=== PATIENT | female | born 1995 | race Two or more races ===

== ENCOUNTER 2018-08-05 17:57 | Emergency (ER) | payer OTHER, SELFPAY ==
[~2018-08-05] VITALS: Ht 167.6 cm; Wt 99.8 kg
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
[2018-08-05 19:05] VITALS: BP 150/89
[2018-08-05] MEDS ORDERED: HYDR-3164 PO (19:28)
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
== END 2018-08-05 20:01 | disposition home or self-care (01) ==
LOC: ER 17:57
DX: S82.491A Other fracture of shaft of right fibula, initial encounter for closed fracture (principal); M25.571 Pain in right ankle and joints of right foot; Y04.8XXA Assault by other bodily force, initial encounter; Y93.89 Activity, other specified; Y92.89 Other specified places as the place of occurrence of the external cause; Y99.8 Other external cause status
CPT/HCPCS: 29505; 73590; 73610; 99284

== ENCOUNTER 2019-02-18 22:42 | Emergency (ER) | payer OTHER ==
[~2019-02-18] VITALS: Ht 167.6 cm; Wt 117.9 kg
[~2019-02-18 22:42] MED LIST: HYDR-3164 PO
[2019-02-18 23:27] VITALS: BP 162/83
--- NOTE | 2019-02-18 23:48 | PHYS DOC ---
Past Medical History Past Medical History: No Pertinent History (SAMEER WALLS APRN) Past Surgical History: No Surgical History (SAMEER WALLS APRN) Alcohol Use: None Drug Use: None (SAMEER WALLS APRN) Attending Signature I have participated in the care of this patient and I have reviewed and agree with all pertinent clinical information above including history, exam, and recommendations. (BRANDI ZARCO MD) Adult General Chief Complaint Chief Complaint: UPPER EXTREMITY PAIN HPI HPI Patient is a 23 year old female who presents to the ED today complaining of a bruise on the right forearm that she noted 2 days ago and is concerned it could be a blood clot because her friend told her. Patient denies any injuries that she knows of. 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 (SAMEER WALLS APRN) Review of Systems Review of Systems Constitutional: Denies fever or chills [] Musculoskeletal: Denies back pain or joint pain [] Integument: Reports bruise to the right forearm Neurologic: Denies headache, focal weakness or sensory changes [] All other systems were reviewed and found to be within normal limits, except as documented in this note. (SAMEER WALLS APRN) Allergies Allergies Allergies Coded Allergies Type Severity Reaction Last Updated Verified No Known Drug Allergies 08/17/14 No (BRANDI ZARCO MD) Physical Exam Physical Exam Constitutional: Well developed, well nourished, no acute distress, non-toxic appearance. [] Skin: Warm, dry, right lateral distal forearm with a small bruise, adequate radial, medial, ulnar sensation to the right upper extremity. +2 right radial pulse. Cap refill less than 2 seconds the right fingers. Back: No tenderness, no CVA tenderness. [] Extremities: No tenderness, no cyanosis, no clubbing, ROM intact, no edema. [] Neurologic: Alert and oriented X 3, normal motor function, normal sensory function, no focal deficits noted. [] Psychologic: Affect normal, judgement normal, mood normal. [] (SAMEER WALLS APRN) Current Patient Data Vital Signs Vital Signs Date Time Temp Pulse Resp B/P (MAP) Pulse Ox O2 Delivery O2 Flow Rate FiO2 02/18/19 23:27 98.0 78 18 162/83 (109) 98 Room Air 98.0 (BRANDI ZARCO MD) EKG EKG [] (SAMEER WALLS APRN) Radiology/Procedures Radiology/Procedures [] (SAMEER WALLS APRN) Course & Med Decision Making Course & Med Decision Making Pertinent Labs and Imaging studies reviewed. (See chart for details) This is a 23-year-old female patient presenting to the ED today worried she has a bruise on the right forearm and thinks it could be a blood clot. Patient was reassured. PERC score 0. Discharged to home. (SAMEER WALLS APRN) Dragon Disclaimer Dragon Disclaimer This electronic medical record was generated, in whole or in part, using a voice recognition dictation system. (SAMEER WALLS APRN) PERC Rule for PE PERC Rule for PE Response (Comments) Value Age > 50: No 0 HR > 100: No 0 Sa02 on room air <95%: No 0 Unilateral leg swelling: No 0 Hemoptysis: No 0 Recent surgery or trauma: No 0 Prior PE or DVT: No 0 Hormone use: No 0 Total 0 Departure Departure Impression: Primary Impression: Arm bruise Disposition: HOME, SELF-CARE Condition: STABLE ((and then this taking it is) Referrals: NO PCP (PCP) follow up next week with your doctor as needed Patient Instructions: Contusion Additional Instructions: You have a bruise to the right forearm, you can ice and elevate the affected area. You can take Tylenol/Motrin for pain. Follow-up with your doctor in 1-2 weeks Problem Qualifiers Primary Impression: Arm bruise Encounter type: initial encounter Laterality: right Qualified Codes: S40.021A - Contusion of right upper arm, initial encounter SAMEER WALLS APRN Feb 18, 2019 23:48 BRANDI ZARCO MD Feb 19, 2019 04:30
== END 2019-02-19 00:08 | disposition home or self-care (01) ==
LOC: ER 22:42
DX: S40.021A Contusion of right upper arm, initial encounter (principal); X58.XXXA Exposure to other specified factors, initial encounter; Y93.89 Activity, other specified; Y92.89 Other specified places as the place of occurrence of the external cause; Y99.8 Other external cause status
CPT/HCPCS: 99281

== ENCOUNTER 2019-08-24 19:32 | Emergency (ER) | payer SELFPAY ==
[~2019-08-24] VITALS: Ht 170.2 cm; Wt 98.0 kg
[2019-08-24 19:56] VITALS: BP 158/86
--- NOTE | 2019-08-24 20:20 | RAD ---
RIGHT ANKLE AP, LATERAL, OBLIQUE Clinical Indication: Reason: ankle injury / Comparison: None. Findings: There is acute traumatic oblique transverse nondisplaced fracture of the lateral malleolus. There is moderate overlying soft tissue swelling. Mineralization is normal. Joint spaces are maintained. The ankle mortise is intact. There is no ankle joint effusion. IMPRESSION: Acute traumatic nondisplaced fracture of the lateral malleolus. Electronically signed by: Tray Erwin MD (08/24/2019 8:17 PM) [id number]
--- NOTE | 2019-08-24 20:24 | PHYS DOC ---
Past Medical History Past Medical History: No Pertinent History Past Surgical History: No Surgical History Smoking Status: Current Every Day Smoker Alcohol Use: Occasionally Drug Use: None General Adult EDM: Chief Complaint: LOWER EXT PAIN HPI: HPI: Patient is a 24-year-old otherwise healthy female presents with a right ankle injury. She states she missed a step about an hour ago and everted her right ankle. She heard a pop. She states the pain is intense and made worse with any attempt to ambulate. She denies any other injuries at this time. [] Review of Systems: Review of Systems: Constitutional: Denies fever or chills. [] Eyes: Denies change in visual acuity. [] HENT: Denies nasal congestion or sore throat. [] Respiratory: Denies cough or shortness of breath. [] Cardiovascular: Denies chest pain or edema. [] GI: Denies abdominal pain, nausea, vomiting, bloody stools or diarrhea. [] : Denies dysuria. [] Musculoskeletal: Per HPI [] Integument: Denies rash. [] Neurologic: Denies headache, focal weakness or sensory changes. [] Endocrine: Denies polyuria or polydipsia. [] Lymphatic: Denies swollen glands. [] Psychiatric: Denies depression or anxiety. [] Heart Score: Risk Factors: Risk Factors: DM, Current or recent (<one month) smoker, HTN, HLP, family history of CAD, obesity. Risk Scores: Score 0 - 3: 2.5% MACE over next 6 weeks - Discharge Home Score 4 - 6: 20.3% MACE over next 6 weeks - Admit for Clinical Observation Score 7 - 10: 72.7% MACE over next 6 weeks - Early Invasive Strategies Allergies: Allergies: Allergies Coded Allergies Type Severity Reaction Last Updated Verified No Known Drug Allergies 08/17/14 No Physical Exam: PE: Constitutional: Well developed, well nourished, moderate distress, non-toxic appearance. [] HENT: Normocephalic, atraumatic, bilateral external ears normal, oropharynx moist, no oral exudates, nose normal. [] Eyes: PERRLA, EOMI, conjunctiva normal, no discharge. [] Neck: Normal range of motion, no tenderness, supple, no stridor. [] Cardiovascular:Heart rate regular rhythm, no murmur [] Lungs & Thorax: Bilateral breath sounds clear to auscultation [] Abdomen: Bowel sounds normal, soft, no tenderness, no masses, no pulsatile masses. [] Skin: Warm, dry, no erythema, no rash. [] Back: No tenderness, no CVA tenderness. [] Extremities: Right ankle has swelling and pain to palp over the lateral malleolus no obvious deformity just swelling [] Neurologic: Alert and oriented X 3, normal motor function, normal sensory function, no focal deficits noted. [] Psychologic: Affect normal, judgement normal, mood normal. [] Current Patient Data: Vital Signs: Vital Signs Date Time Temp Pulse Resp B/P (MAP) Pulse Ox O2 Delivery O2 Flow Rate FiO2 08/24/19 19:56 95.0 98 16 158/86 (110) 98 Room Air 95.0 EKG: EKG: [] Radiology/Procedures: Radiology/Procedures: [REASON: ankle injury PROCEDURE: ANKLE RIGHT 3V RIGHT ANKLE AP, LATERAL, OBLIQUE Clinical Indication: Reason: ankle injury / Comparison: None. Findings: There is acute traumatic oblique transverse nondisplaced fracture of the lateral malleolus. There is moderate overlying soft tissue swelling. Mineralization is normal. Joint spaces are maintained. The ankle mortise is intact. There is no ankle joint effusion. IMPRESSION: Acute traumatic nondisplaced fracture of the lateral malleolus.] Course & Med Decision Making: Course & Med Decision Making Pertinent Labs and Imaging studies reviewed. (See chart for details) [ED course: Evaluation reveals a 24-year-old with a right ankle fracture. Please see below for description of splint placement. Procedure: Posterior OCL splint placement right lower leg Splint was placed by myself and the tech I examined after the splint was placed and the patient remained neurovascularly intact patient was also fitted for crutches.] Dragon Disclaimer: Dragon Disclaimer: This electronic medical record was generated, in whole or in part, using a voice recognition dictation system. Departure Departure Impression: Primary Impression: Closed fracture of right distal fibula Qualified Codes: S82.831A - Other fracture of upper and lower end of right fibula, initial encounter for closed fracture Disposition: HOME, SELF-CARE Condition: STABLE Referrals: NO PCP (PCP) SHASHA HARRY MD Call Dr. Harry this week to schedule follow-up appointment. Patient Instructions: Cast or Splint Care, Crutch Use, Fibular Fracture, Ankle, Adult, Undisplaced, Treated with Immobilization Scripts Hydrocodone/Apap 5-325 (NORCO 5-325 TABLET) 1 Each Tablet 1 TAB PO PRN Q6HRS PRN for PAIN, #12 TAB 0 Refills Prov: NILSA HERRMANN DO 08/24/19 NILSA HERRMANN DO August 24, 2019 20:24
[2019-08-24] MEDS ORDERED: HYDR-3164 PO (20:28)
[2019-08-24] MEDS ORDERED: ONDANSETRON ODT 4 MG TAB.RAPDIS. PO ONE (20:30)
[2019-08-24] MEDS ORDERED: oxyCODONE/APAP 5/325 1 TAB TABLET PO ONE (20:30)
== END 2019-08-24 21:12 | disposition home or self-care (01) ==
LOC: ER 19:32
DX: S82.831A Other fracture of upper and lower end of right fibula, initial encounter for closed fracture (principal); F17.200 Nicotine dependence, unspecified, uncomplicated; X50.9XXA Other and unspecified overexertion or strenuous movements or postures, initial encounter; Y93.89 Activity, other specified; Y92.89 Other specified places as the place of occurrence of the external cause; Y99.8 Other external cause status
CPT/HCPCS: 29515; 73610; 99284; Q0162

== ENCOUNTER 2021-04-12 11:54 | Emergency (ER) | payer BC ==
[~2021-04-12] VITALS: Ht 167.6 cm; Wt 107.7 kg
--- NOTE | 2021-04-12 12:49 | PHYS DOC ---
Past Medical History Past Medical History: No Pertinent History Past Surgical History: No Surgical History Smoking Status: Current Every Day Smoker Alcohol Use: None Drug Use: None General Adult EDM: Chief Complaint: VAGINAL BLEEDING HPI: HPI: Patient is a 25 year old female at approximately 5w4d by LMP who presents with vaginal bleeding, and lower abdominal cramping. Bleeding started last night as spotting and has progressed to more steady bleeding. Cramping started this morning. Patient recently tested positive for home test. Her last menstrual period was 03/04. She has had 1 previous full-term vaginal induction delivery that was complicated by preec lampsia and gestational diabetes. She has had 1 medically induced at 8-9 weeks gestational age approximately 2 years ago. Denies abdominal pain, dysuria, or urinary urgency, urinary frequency. Review of Systems: Review of Systems: Constitutional: Denies fever or chills. [] Eyes: Denies change in visual acuity. [] HENT: Denies nasal congestion or sore throat. [] Respiratory: Denies cough or shortness of breath. [] Cardiovascular: Denies chest pain or edema. [] GI: + Lower pelvic cramping : + Vaginal bleeding denies dysuria. [] Musculoskeletal: Denies back pain or joint pain. [] Integument: Denies rash. [] Neurologic: Denies headache, focal weakness or sensory changes. [] Psychiatric: Denies depression or anxiety. [] Heart Score: C/O Chest Pain: No Allergies: Allergies: Allergies Coded Allergies Type Severity Reaction Last Updated Verified No Known Drug Allergies 08/17/14 No Physical Exam: PE: Constitutional: Well developed, well nourished, no acute distress, non-toxic appearance. [] Neck: Normal range of motion, no tenderness, supple, no stridor. [] Cardiovascular:Heart rate regular rhythm, no murmur [] Lungs & Thorax: Bilateral breath sounds clear to auscultation [] Abdomen: Soft, mild suprapubic tenderness to palpation. Pelvic: Normal external genitalia examination. Small amount of blood coming from an open cervical os. No products seen. Skin: Warm, dry, no erythema, no rash. [] Back: No tenderness, no CVA tenderness. [] Extremities: No tenderness, no cyanosis, no clubbing, ROM intact, no edema. [] Neurologic: Alert and oriented X 3, normal motor function, normal sensory function, no focal deficits noted. [] Psychologic: Affect normal, judgement normal, mood normal. [] EKG: EKG: [] Radiology/Procedures: Radiology/Procedures: [] Impression: [facility] [address] [place] [address] IMAGING REPORT Signed PATIENT: BARAK DOWNEY ACCOUNT: [id number] : 1995 LOCATION: ER AGE: 25 SEX: F EXAM STATUS: REG ER ORD. PHYSICIAN: MARTINA SPARKS MD REASON: vag bleeding, cramping, 5w4d by LMP PROCEDURE: OB <14 WKS W/TV EXAM: Obstetrics sonogram. HISTORY: Vaginal bleeding and cramping. TECHNIQUE: Transabdominal and transvaginal sonographic imaging of the pelvis was performed. COMPARISON: None. FINDINGS: The uterus measures 9 x 7 x 5 cm. No intrauterine gestational sac is seen. The endometrial stripe measures 3 mm in thickness. The ovaries are normal in size and demonstrate normal blood flow. There are small bilateral ovarian antral follicles. There is no pelvic free fluid. IMPRESSION: No evidence of an intrauterine gestation. There is no beta-hCG level for correlation at the time of dictation. The absence of an intrauterine gestational sac may be due to a viable early , chemical or early miscarriage. Correlate with serial beta hCG levels. If levels are increasing, short-term sonographic follow-up is recommended to assess viability and exclude ectopic gestation. Electronically signed by: Karma Perrin MD (04/12/2021 1:21 PM) [id number] DICTATED and SIGNED BY: KARMA PERRIN MD DATE: 04/12/21 [id number] 0 Course & Med Decision Making: Course & Med Decision Making Pertinent Labs and Imaging studies reviewed. (See chart for details) Patient is 25-year-old female who presents with vaginal bleeding and lower abdominal cramping in the setting of recent positive home test. Would be 5 weeks, 4 days by LMP. Rh+, no rhogam indicated. Cervical os is open on examination, and no was seen on ultrasound. Urine test was negative, beta quant was 2. All findings suggestive of early miscarriage. Patient provided with expectant management, return precautions, and OB follow-up Dragon Disclaimer: Dragon Disclaimer: This electronic medical record was generated, in whole or in part, using a voice recognition dictation system. Departure Departure Impression: Primary Impression: Miscarriage Disposition: HOME / SELF CARE / HOMELESS Condition: STABLE Referrals: NO PCP (PCP) TISH CASTELLANO MD Please schedule a follow-up appointment with her OB, Dr. Castellano. Patient Instructions: Miscarriage Additional Instructions: It appears you are having an early miscarriage. You likely have bleeding and cramping until it completes. At this time we will likely stop on it own without a need for medications or surgery. Return to the emergency department if pain increases, bleeding becomes much more severe, you experience chest pain, shortness of breath, worsening lightheadedness, fever/chills or other new/concerning symptoms. Please follow-up with Dr. Castellano, our OB doctor. MARTINA SPARKS MD Apr 12, 2021 12:48
--- NOTE | 2021-04-12 13:23 | RAD ---
EXAM: Obstetrics sonogram. HISTORY: Vaginal bleeding and cramping. TECHNIQUE: Transabdominal and transvaginal sonographic imaging of the pelvis was performed. COMPARISON: None. FINDINGS: The uterus measures 9 x 7 x 5 cm. No intrauterine gestational sac is seen. The endometrial stripe measures 3 mm in thickness. The ovaries are normal in size and demonstrate normal blood flow. There are small bilateral ovarian antral follicles. There is no pelvic free fluid. IMPRESSION: No evidence of an intrauterine gestation. There is no beta-hCG level for correlation at t he time of dictation. The absence of an intrauterine gestational sac may be due to a viable early pre gnancy, chemical or early miscarriage. Correlate with serial beta hCG levels. If levels are increasing, short-term sonographic follow-up is recommended to assess viability and exclude ectopic gestation. Electronically signed by: Karma Mauricio MD (04/12/2021 1:21 PM) [id number]
[2021-04-12 14:01] LABS: BASO % 1 % (0-3); EOS # 0.1 x10^3/uL (0.0-0.7); EOS % 1 % (0-3); HEMATOCRIT 35.6 % (36.0-47.0); LYMPH # 2.3 x10^3/uL (1.0-4.8); LYMPH % 31 % (24-48); MEAN CORPUSCULAR HEMOGLOBIN 29 pg (25-35); MEAN CORPUSCULAR HGB CONC 34 g/dL (31-37); MEAN CORPUSCULAR VOLUME 87 fL (79-100); MONO # 0.5 x10^3/uL (0.0-1.1); MONO % 6 % (0-9); NEUT # 4.6 x10^3/uL (1.8-7.7); NEUT % 62 % (31-73); PLATELET COUNT 205 x10^3/uL (140-400); RED BLOOD COUNT 4.08 x10^6/uL (3.50-5.40); RED CELL DISTRIBUTION WIDTH 13.8 % (11.5-14.5); WHITE BLOOD COUNT 7.4 x10^3/uL (4.0-11.0)
[2021-04-12 14:07] LABS: CALCIUM 8.5 mg/dL (8.5-10.1); CREATININE 0.4 mg/dL (0.6-1.0); GFR 196.1; POTASSIUM 3.7 mmol/L (3.5-5.1)
[2021-04-12 14:09] LABS: BILIRUBIN,URINE NEGATIVE (NEG); CLARITY,URINE CLEAR; COLOR,URINE YELLOW; NITRITE,URINE NEGATIVE (NEG); PROTEIN,URINE NEGATIVE (NEG-TRACE); UROBILINOGEN,URINE 0.2 mg/dL (0.2 mg/dL)
[2021-04-12 14:15] LABS: U PREG PATIENT NEGATIVE (NEG)
[2021-04-12] MEDS ORDERED: ACETAMINOPHEN 500 MG TABLET PO ONE (14:15)
[2021-04-12 14:41] LABS: RBC,URINE >40 /HPF (0-2)
[2021-04-12 14:42] LABS: BACTERIA,URINE FEW /HPF (0-FEW)
[2021-04-12 14:49] VITALS: BP 130/65
== END 2021-04-12 15:05 | disposition home or self-care (01) ==
LOC: ER 11:54
DX: O03.9 Complete or unspecified spontaneous abortion without complication (principal); O99.331 Smoking (tobacco) complicating pregnancy, first trimester; Z3A.01 Less than 8 weeks gestation of pregnancy
CPT/HCPCS: 36415; 76801; 76817; 80048; 81001; 81025; 84702; 85025; 86900; 86901; 99285-25